=== PATIENT | female | born 1980 | race African-American/Black ===

== ENCOUNTER 2021-01-07 09:57 | Emergency (ER) | payer MEDICARE, MEDICAID | END 2021-01-07 17:35 | disposition home or self-care (01) | LOC: CSHERS 09:57 | DX: Z46.59 Encounter for fitting and adjustment of other gastrointestinal appliance and device (principal); E78.5 Hyperlipidemia, unspecified | CPT/HCPCS: 43762; 74022 ==

== ENCOUNTER 2024-10-07 11:46 | Outpatient (CLI) | payer MEDICARE, MEDICAID | END 2024-10-07 11:47 | disposition home or self-care (01) | LOC: CSHMAMMO 11:46 | PROVIDERS: ATTEND Student in an Organized Health Care Education/Training Program | DX: Z12.31 Encounter for screening mammogram for malignant neoplasm of breast (principal); Z80.3 Family history of malignant neoplasm of breast | CPT/HCPCS: 77063; 77067 ==

== ENCOUNTER 2025-05-06 20:29 | Emergency (ER) | payer MEDICARE, MEDICAID, OTHER | END 2025-05-06 22:38 | disposition home or self-care (01) | LOC: CSHERS 20:29 | DX: R68.84 Jaw pain (principal); I10 Essential (primary) hypertension; E78.00 Pure hypercholesterolemia, unspecified; Z79.84 Long term (current) use of oral hypoglycemic drugs; Z79.899 Other long term (current) drug therapy | CPT/HCPCS: 70486 ==